=== PATIENT | female | born 1990 | race Caucasian/White ===

== ENCOUNTER 2016-05-17 16:57 | Inpatient (IN) | payer OTHER ==
[2016-05-17] MEDS ORDERED: ELECTROLYTE-A SOLUTION 1,000 ML IV ONE ×2 (17:05→17:34)
[2016-05-17] MEDS ORDERED: HYDROmorphone 1 MG/ML SYRINGE IVP STA (18:09)
[2016-05-17] MEDS ORDERED: PROMETHAZINE INJ 25 MG in SODIUM CHLORIDE 0.9% 50 ML IV STA (18:09)
[2016-05-17] MEDS ORDERED: INSULIN REGULAR HUMAN 100 UNIT/1 ML 10 ML MDV IVP STA (18:13)
[2016-05-17] MEDS ORDERED: PROCHLORPERAZINE 10 MG/2 ML VIAL IVP PRN ×2 (18:52→20:14)
[2016-05-17] MEDS ORDERED: ZOLPIDEM 5 MG TABLET PO PRN ×2 (18:52→20:14)
[2016-05-17] MEDS ORDERED: ACETAMINOPHEN 325 MG TABLET PO PRN ×2 (18:52→20:14)
[2016-05-17] MEDS ORDERED: ONDANSETRON 4 MG/2 ML VIAL IVP PRN ×2 (18:52→20:14)
[2016-05-17] MEDS ORDERED: SODIUM CHLORIDE FLUSH 0.9% 10 ML SYRINGE IVP PRN ×2 (18:52→20:14)
[2016-05-17] MEDS ORDERED: HYDROcod/ACETAM 10 MG/325 MG TABLET PO PRN ×2 (18:52→20:14)
[2016-05-17] MEDS ORDERED: HYDROcod/ACETAM 5/325 MG TABLET PO PRN ×2 (18:52→20:14)
[2016-05-17] MEDS ORDERED: PROMETHAZINE 25 MG/1 ML VIAL ONE (18:53)
[2016-05-17] MEDS ORDERED: HYDROmorphone 1 MG/ML SYRINGE ONE (18:53)
[2016-05-17] MEDS ORDERED: INSULIN ASPART 100 UNIT/1 ML 10 ML MDV SUBQ ONE (18:55)
[2016-05-17] MEDS: INSULIN REGULAR HUMAN 100 UNIT in SODIUM CHLORIDE 0.9% 100ML 99 ML IV STA ×2 (19:00→21:06)
[2016-05-17] MEDS ORDERED: SODIUM CHLORIDE 0.9% 1,000 ML IV ONE ×5 (19:00→20:23)
[2016-05-17] MEDS ORDERED: HYDROmorphone 1 MG/ML SYRINGE IVP PRN ×2 (19:17→20:14)
[2016-05-17] MEDS ORDERED: NS W/20 MEQ KCL 1,000 ML IV SCH ×2 (20:00)
[2016-05-17] MEDS: SODIUM CHLORIDE FLUSH 0.9% 10 ML SYRINGE IVP SCH (21:12)
[2016-05-17] MEDS ORDERED: SODIUM CHLORIDE FLUSH 0.9% 10 ML SYRINGE IVP SCH (22:00)
[2016-05-17] MEDS ORDERED: DEXTROSE GEL 37.5 GM TUBE PO PRN (22:43)
[2016-05-17] MEDS ORDERED: DEXTROSE 50% ABBOJECT 25 GM/50 ML SYRINGE IVP PRN (22:43)
[2016-05-17] MEDS ORDERED: GLUCAGON 1 MG/ML VIAL SUBQ PRN (22:43)
[2016-05-17] MEDS ORDERED: DEXTROSE 5% 1,000 ML IV PRN (22:43)
[2016-05-18] MEDS ORDERED: INSULIN GLARGINE 300 UNIT/3 ML PEN SUBQ ONE (00:12)
[2016-05-18] MEDS ORDERED: SENNA 8.6 MG TABLET ONE (00:27)
[2016-05-18] MEDS ORDERED: PANTOPRAZOLE 40 MG TABLET PO SCH ×2 (07:00)
[2016-05-18] MEDS ORDERED: INSULIN GLARGINE 300 UNIT/3 ML PEN SUBQ SCH ×2 (08:00→21:00)
[2016-05-18] MEDS: INSULIN REGULAR HUMAN 100 UNIT in SODIUM CHLORIDE 0.9% 100ML 99 ML IV SCH ×2 (18:08→18:10)
[2016-05-18] MEDS: SODIUM CHLORIDE 0.9% 1,000 ML IV SCH ×4 (18:08→18:12)
[2016-05-18] MEDS: INSULIN ASPART 300 UNIT/3 ML PEN SUBQ SCH ×5 (18:09→18:12)
[2016-05-18] MEDS: SODIUM CHLORIDE FLUSH 0.9% 10 ML SYRINGE IVP SCH ×2 (18:09→18:11)
== END 2016-05-18 12:30 | disposition home or self-care (01) | DRG 638 ==
DX: E10.10 Type 1 diabetes mellitus with ketoacidosis without coma (principal); N17.9 Acute kidney failure, unspecified; E87.1 Hypo-osmolality and hyponatremia; D72.829 Elevated white blood cell count, unspecified; Z79.4 Long term (current) use of insulin; Z96.41 Presence of insulin pump (external) (internal); E10.42 Type 1 diabetes mellitus with diabetic polyneuropathy; I73.00 Raynaud's syndrome without gangrene; F32.9 Major depressive disorder, single episode, unspecified; F41.9 Anxiety disorder, unspecified; E86.0 Dehydration; I49.9 Cardiac arrhythmia, unspecified; D50.9 Iron deficiency anemia, unspecified; Z79.82 Long term (current) use of aspirin; Z79.899 Other long term (current) drug therapy